=== PATIENT | female | born 1985 | race Two or more races ===

== ENCOUNTER 2024-10-14 16:42 | Emergency (ER) | payer SELFPAY ==
[~2024-10-14] VITALS: Ht 162.6 cm; Wt 70.0 kg
--- NOTE | 2024-10-14 16:56 | ED.PDOC ---
HPI Comments This is a 39 year-old female, with a PMHX of ADHD and Panic Attacks, presents to the ED with a chief complaint of worsening substernal chest pain with associated nausea as of today. Patient reports having chest pain for months, but usually due to Panic Attacks. Patient states chest pain is an 8/10, "tight", and exacerbated with walking. Patient reports taking deep breaths to alleviate chest pain. Patient reports substernal chest pain radiates to back. Patient has no further complaints at this time and otherwise denies further associated symptoms of dizziness, migraine, palpitations, V/D, fever, or chills. Chief Complaint: Chest Pain Time Seen by MD: 16:57 Reviewed Notes: Medications, Allergies Allergies: Coded Allergies: NO KNOWN ALLERGIES (Unverified , 10/14/24) Information Source: Patient Mode of Arrival: Ambulatory Severity: Moderate Timing: Hours Duration: Since onset Location: Substernal Radiation: Back Quality: Tightness Associated Signs and Symptoms: Other (chest pain ) Past Medical History Past Medical History (Other): Panic Attack Surgical History: Denies all surgeries LICENSED MASSAGE PRACTITIONER History: No Pertinent LICENSED MASSAGE PRACTITIONER History Family History Family History: Reviewed,noncontributory to illness, No family hx of Cancer, No family hx of DM, No family hx of Heart stephane, No family hx of HTN, No family hx ofKidney stephane, No family hx of Liver stephane, No family hx of Lung stephane, No family hx of Stroke Social History Smoker: Non-Smoker Alcohol: Occasionally Drugs: Marijuana (gummies ) Lives In: Home Constitutional: denies: chills, diaphoresis, fatigue, fever, malaise, sweats, weakness, others EENTM: denies: blurred vision, double vision, ear bleeding, ear discharge, ear drainage, ear pain, ear ringing, eye pain, eye redness, hearing loss, mouth pain, mouth swelling, nasal discharge, nose bleeding, nose congestion, nose pain, photophobia, tearing, throat pain, throat swelling, voice changes, others Respiratory: denies: cough, hemoptysis, orthopnea, SOB at rest, shortness of breath, SOB with excertion, stridor, wheezing, others Cardiovascular: reports: chest pain; denies: dizzy spells, diaphoresis, Dyspnea on exertion, edema, irregular heart beat, left arm pain, lightheadedness, palpitations, PND, syncope, others Gastrointestinal: denies: abdomen distended, abdominal pain, blood streaked bowels, constipated, diarrhea, dysphagia, difficulty swallowing, hematemesis, melena, nausea, poor appetite, poor fluid intake, rectal bleeding, rectal pain, vomiting, others Genitourinary: denies: abnormal vagina bleeding, burning, dyspareunia, dysuria, flank pain, frequency, hematuria, incontinence, pain, , vagina discharge , urgency, others Neurological: denies: dizziness, fainting, headache, left sided numbness, left sided weakness, numbness, paresthesia, pre-existing deficit, right sided numbness, right sided weakness, seizure, speech problems, tingling, tremors, weakness, others Musculoskeletal: denies: back pain, gout, joint pain, joint swelling, muscle pain, muscle stiffness, neck pain, others Integumetry: denies: bruises, change in color, change in hair/nails, dryness, laceration, lesions, lumps, rash, wounds, others Allergic/Immunocompromised: denies: Difficulty Healing, Frequent Infections, Hives, Itching, others Hematologic/Lymphatic: denies: anemia, blood clots, easy bleeding, easy bruising, swollen glands, others Endocrine: denies: excessive hunger, excessive sweating, excessive thirst, excessive urination, flushing, intolerance to cold, intolerance to heat, unexplained weight gain, unexplained weight loss, others Psychiatric: denies: anxiety, bipolar disorder, depression, hopeless, panic di sorder, schizophrenia, sleepless, suicidal, others All Other Systems: Reviewed and Negative Physical Exam General Appearance: No Apparent Distress HEENT: Normal ENT Inspection, Pharynx Normal, TMs Normal Neck: Full Range of Motion, Non-Tender, Normal, Normal Inspection Respiratory: Chest Non-Tender, Lungs Clear, No Accessory Muscle Use, No Respiratory Distress, Normal Breath Sounds Cardiovascular: No Edema, No JVD, No Murmur, No Gallop, Normal Peripheral Pulses, Regular Rate/Rhythm Breast Exam: Deferred Gastrointestinal: No Organomegaly, Non Tender, No Pulsatile Mass, Normal Bowel Sounds, Soft Genitalia: Deferred Pelvic: Deferred Rectal: Deferred Extremities: No calf tenderness, Normal capillary refill, Normal inspection, Normal range of motion, Non-tender, No pedal edema Musculoskeletal : Apperance: Normal Neurologic: Alert, engineer conductor II-XII nml as Tested, No Motor Deficits, Normal Affect, Normal Mood, No Sensory Deficits Cerebellar Function: Normal Reflexes: Normal Skin: Dry, Normal Color, Warm Lymphatic: No Adenopathy EKG EKG : Pulse Rate (adult): 102 [place]: Normal Cardiac Rhythm: ST Block: None Hypertrophy: None ST: Normal Was a procedure done? Was a procedure done?: No CP Differential Dx Differential Diagnosis: Anxiety / Panic Attack Differential Diagnosis: CHF, HTN Essential, HTN Accelerated Differential Diagnosis: Chest Wall Pain X-Ray, Labs, Meds, VS Vital Signs Date Time Temp Pulse Resp B/P (MAP) Pulse Ox O2 Delivery O2 Flow Rate FiO2 10/14/24 16:56 102 10/14/24 16:48 101 10/14/24 16:45 98.2 117 16 134/88 100 98.2 Lab Test 10/14/24 17:21 10/14/24 16:54 Range/Units White Blood Count 6.8 4.4-10.8 10^3/uL Red Blood Count 5.00 4.0-5.20 10^6/uL Hemoglobin 13.8 12.2-16.2 g/dL Hematocrit 41.2 36.0-46.0 % Mean Corpuscular Volume 82.4 80.0-100.0 fL Mean Corpuscular Hemoglobin 27.6 L 28.0-32.0 pg Mean Corpuscular Hemoglobin Concent 33.5 32.0-36.0 g/dL Red Cell Distribution Width 13.6 11.8-14.3 % Platelet Count 470 H 140-450 10^3/uL Mean Platelet Volume 7.7 6.9-10.8 fL Neutrophils (%) (Auto) 62.5 37.0-80.0 % Lymphocytes (%) (Auto) 28.4 10.0-50.0 % Monocytes (%) (Auto) 6.6 0.0-12.0 % Eosinophils (%) (Auto) 1.4 0.0-7.0 % Basophils (%) (Auto) 1.1 0.0-2.0 % Neutrophils # (Auto) 4.3 1.6-8.6 10 ^3/uL Lymphocytes # (Auto) 1.9 0.4-5.4 10 ^3/uL Monocytes # (Auto) 0.4 0-1.3 10 ^3/uL Eosinophils # (Auto) 0.1 0-0.8 10 ^3/uL Basophils # (Auto) 0.1 0-0.2 10 ^3/uL Nucleated Red Blood Cells 0.0 % Sodium Level 142 136-145 mmol/L Potassium Level 3.9 3.5-5.1 mmol/L Chloride Level 104 98-107 mmol/L Carbon Dioxide Level 26 20-31 mmol/L Anion Gap 12 5-15 Blood Urea Nitrogen 14 9-23 mg/dL Creatinine 0.94 0.550-1.02 mg/dL Glomerular Filtration Rate Calc 79 >90 mL/min BUN/Creatinine Ratio 14.9 10.0-20.0 Serum Glucose 88 74-106 mg/dL Calcium Level 10.5 H 8.7-10.4 mg/dL Troponin I High Sensitivity < 3 L </=34 ng/L Urine Color Colorless Yellow Urine Clarity Clear Clear Urine pH 5.5 5.0-9.0 Urine Specific [place] 1.009 1.001-1.035 Urine Protein Negative Negative Urine Ketones Trace Negative Urine Blood Negative Negative /uL Urine Nitrite Negative Negative Urine Bilirubin Negative Negative Urine Urobilinogen Normal Negative mg/dL Urine Leukocyte Esterase Negative Negative /uL Urine RBC 1 0 - 4 /hpf Urine Microscopic WBC 1 0-5 /HPF Urine Squamous Epithelial Cells Few <5 /hpf Urine Bacteria None seen None Seen /hpf Urine Glucose 4+ H Normal mg/dL The chest x-ray is negative The urine test is also negative The patient's CBC and chemistry panel are within normal limits The troponin levels negative At this time, the patient is being discharged and will follow up with the primary care doctor The patient will return to the emergency department's condition worsens The patient understands and agrees with the management. Images Reviewed?: Images reviewed and evaluated by me Time of 1ST Reevaluation: 17:23 Reevaluation 1ST: Unchanged Patient Education/Counseling: Diagnosis, Treatment, Prognosis, Need For Follow Up Family Education/Counseling: No Family Present SEPSIS Sepsis Screen Physician Orders Electrocardigram (10/14/24 16:52) Electrocardigram (10/14/24 17:52) Electrocardigram (10/14/24 19:52) Chest Two Views Routine (10/14/24 17:04) Troponin-I Hs (10/14/24 18:04) Troponin-I Hs (10/14/24 20:04) Vital Signs Date Time Temp Pulse Resp B/P (MAP) Pulse Ox O2 Delivery O2 Flow Rate FiO2 10/14/24 16:56 102 10/14/24 16:48 101 10/14/24 16:45 98.2 117 16 134/88 100 98.2 Laboratory Tests Test 10/14/24 17:21 White Blood Count 6.8 10^3/uL (4.4-10.8) Departure 1 Departure Time of Disposition: 18:11 Impression: Primary Impression: Acute anxiety Additional Impression: Atypical chest pain Disposition: HOME / SELF CARE / HOMELESS Condition: Fair Discharged With: Self Critical Care Note Critical Care Time?: No Stability Stability form required: No Heart Score Heart Score: Heart Score Response (Comments) Value History Slightly Suspicious 0 EKG Normal 0 Age <45 0 Risk Factors 1 or 2 risk factors 1 Troponin Normal limit 0 Total 1 I personally scribed for AMPARO ISSA MD ([email or web address]) on 10/14/24 at 16:56. Electronically submitted by Cassia Tejada ([employer]). I personally scribed for AMPARO ISSA MD ([email or web address]) on 10/14/24 at 17:07. Electronically submitted by Cassia Tejada ([employer]). I personally scribed for AMPARO ISSA MD ([email or web address]) on 10/14/24 at 17:14. Electronically submitted by Cassia Tejada ([employer]). AMPARO ISSA MD Oct 14, 2024 16:56
--- NOTE | 2024-10-14 17:30 | DVH ---
CHEST RADIOGRAPH Indication: cp Technique: XY CHEST TWO VIEWS ROUTINE Comparison: None FINDINGS: The cardiac silhouette is unremarkable. The lungs demonstrate no pulmonary airspace consolidation. Th e pulmonary vasculature is unremarkable. There is no pleural effusion. There is no pneumothorax. IMPRESSION: No pulmonary airspace consolidation.
[2024-10-14 17:59] LABS: Chloride 104 mmol/L (98-107); Potassium 3.9 mmol/L (3.5-5.1); Sodium 142 mmol/L (136-145)
[2024-10-14 18:00] LABS: Anion Gap 12 (5-15); Carbon Dioxide 26 mmol/L (20-31)
[2024-10-14 18:01] LABS: Hematocrit 41.2 % (36.0-46.0); Hemoglobin 13.8 g/dL (12.2-16.2); Mean Corpuscular Hemoglobin 27.6 pg (28.0-32.0); Mean Corpuscular Volume 82.4 fL (80.0-100.0); Nucleated Red Blood Cells % 0.0 %
[2024-10-14 18:02] LABS: Urine Protein, UAD Negative (Negative)
[2024-10-14 18:05] LABS: BUN/Creatinine Ratio 14.9 (10.0-20.0); Blood Urea Nitrogen 14 mg/dL (9-23); Calcium 10.5 mg/dL (8.7-10.4); Glucose 88 mg/dL (74-106)
[2024-10-14 18:45] VITALS: BP 133/82; PULSE 96; RESP 19; TEMP 98.3; O2SAT 99
--- NOTE | 2024-10-20 08:47 | ECG ---
[facility] Test Date: 2024-10-14 Test Time: 16:48:36 Pat Name: WANDER TOLBERT Department: [facility] ED Patient ID: [id number] Room: Gender: F International Marketing Intern: : 1985 Requested By: AMPARO ISSA Order Number: [id number] Reading MD: Hector Webber Measurements Intervals [place] Rate: 101 P: 67 RI: 127 QRS: 70 QRSD: 91 T: 42 QT: 343 QTc: 445 Interpretive Statements Sinus tachycardia Baseline wander in lead(s) II,III,aVF Electronically Signed On 10-26-2024 16:50:56 PDT by Hector Webber Please click the below link to view image of tracing.
== END 2024-10-14 18:45 | disposition home or self-care (01) ==
LOC: ER 16:42
DX: F41.9 Anxiety disorder, unspecified (principal); R07.89 Other chest pain; F12.90 Cannabis use, unspecified, uncomplicated; Z79.899 Other long term (current) drug therapy
CPT/HCPCS: 36415; 71046; 80048; 81001; 84484; 85025; 93005